=== PATIENT | male | born 1990 | race Caucasian/White ===

== ENCOUNTER 2020-10-12 19:57 | Emergency (ER) | payer SELFPAY ==
[~2020-10-12] VITALS: Ht 185.4 cm; Wt 120.2 kg
--- NOTE | 2020-10-12 20:00 | NUR ---
Patient to [facility] Chair to gown for evaluation. Side rails up.
--- NOTE | 2020-10-12 20:05 | NUR ---
Dr. Mays chairside for pt eval
[2020-10-12 20:10] VITALS: BP_SYST 110
--- NOTE | 2020-10-12 20:10 | NUR ---
Pt BIB family to ED seeking evaluation of nausea, vomiting. The patient states that yesterday he received a second dose of the COVID vaccination. He reports that gradually after he developed a fever of 103 at home. He states that nothing seemed to make his symptoms better or worse. He reports no associated pain. The patient reports that he has not yet attempted to alleviate his symptoms with medication prior to arrival
[2020-10-12] MEDS ORDERED: ONDANSETRON 4 MG ODT TAB PO ONE (20:15)
[2020-10-12] MEDS ORDERED: IBUPROFEN 800 MG TABLET PO ONE (20:15)
[2020-10-12 20:38] LABS: BASOPHILS % (AUTO) 0.6 % (0.0-2.0); EOSINOPHILS # (AUTO) 0.1 K/uL (0.0-0.4); EOSINOPHILS % (AUTO) 0.9 % (0.0-4.0); HEMOGLOBIN 16.3 g/dL (14.0-18.0); LYMPHOCYTES # (AUTO) 1.1 K/uL (1.0-5.5); LYMPHOCYTES % (AUTO) 15.9 % (20.5-51.5); MEAN CORPUSCULAR HEMOGLOBIN 31 pg (27-31); MEAN CORPUSCULAR HGB CONC 35 % (32-36); MEAN CORPUSCULAR VOLUME 88 fL (79.0-98.0); MONOCYTES # (AUTO) 0.2 K/uL (0.0-1.0); MONOCYTES % (AUTO) 3.7 % (1.7-9.3); NEUTROPHILS # (AUTO) 5.3 K/uL (1.8-7.7); NEUTROPHILS % (AUTO) 78.9 % (40.0-70.0); PLATELET COUNT (AUTO) 170 K/uL (130-430); RED BLOOD CELL COUNT(AUTO) 5.26 MIL/uL (4.2-6.2); RED CELL DISTRIBUTION WIDTH 12.7 % (9.0-15.0); WHITE BLOOD COUNT (AUTO) 6.7 K/uL (4.8-10.8)
--- NOTE | 2020-10-12 20:50 | NUR ---
Lab draw chairside by lab well tolerated
[2020-10-12 20:58] LABS: CALCIUM 8.8 mg/dL (8.4-11.0); CREATININE 1.1 mg/dL (0.55-1.30); POTASSIUM 3.6 mmol/L (3.5-5.1)
[2020-10-12 21:04] LABS: TOTAL BILIRUBIN 0.4 mg/dL (0.0-1.0)
[2020-10-12 21:18] LABS: C-REACTIVE PROTEIN QUANT 5.7 mg/dL (0-0.5)
[2020-10-12 21:21] LABS: PROTHROMBIN TIME 10.2 SECS (9.5-12.5)
[2020-10-12] MEDS ORDERED: IBUP-1971 PO (21:27)
[2020-10-12] MEDS ORDERED: ONDA-8 TL (21:27)
[2020-10-12 21:30] VITALS: BP_SYST 110
--- NOTE | 2020-10-12 21:30 | NUR ---
Patient given written and verbal discharge instructions and verbalizes understanding. ER MD discussed with patient the results and treatment provided. Patient in stable condition. ID arm band removed. Rx of Zofran and Motrin given. Patient educated on pain management and to follow up with PMD. Pain Scale 0/10 Opportunity for questions provided and answered. Medication side effect fact sheet provided.
[2020-10-13] MEDS ORDERED: NALOXONE HCL 0.4 MG/ML AMP (NARCAN) ONE (01:25)
== END 2020-10-12 21:30 | disposition home or self-care (01) ==
LOC: SED 19:57
DX: R11.2 Nausea with vomiting, unspecified (principal); Z79.899 Other long term (current) drug therapy
CPT/HCPCS: 36415; 80053; 82150; 83605; 83615; 83690; 85025; 85610; 85730; 86140; 99283; Q0162; J2310